=== PATIENT | female | born 1995 | race Caucasian/White ===

== ENCOUNTER 2018-05-04 17:06 | Emergency (ER) | payer MEDICAID, OTHER ==
[2018-05-04 17:19] VITALS: O2SAT 100
[2018-05-04] MEDS ORDERED: Sodium Chloride 0.9% 1,000 ML IV STA (17:51)
--- NOTE | 2018-05-04 18:44 | ED PDOC ---
HPI: General Adult Time Seen by Provider: 05/04/18 17:38 Chief Complaint (Nursing): Back Pain Chief Complaint (Provider): Flank Pain History Per: Patient History/Exam Limitations: no limitations Onset/Duration Of Symptoms: Days (over two weeks) Current Symptoms Are (Timing): Still Present Additional Complaint(s): 22 year old female with no significant past medical history presents to the ED with left flank pain ongoing for more than 2 weeks. Patient reports she went to [facility] ER twice, where she was told she has a kidney infection and was given unknown antibiotics. She took them for a week but pain persisted. She took oral pyridium, however symptoms are persisting. She does not know if cultures were performed and denies that CT imaging was done. Patient has only had one UTI in the past. She denies fever, abdominal pain, body aches or chills. Patient notes intermittent palpitations. She admits to actively smoking. PMD: Adilson Arrington Past Medical History Reviewed: Historical Data, Nursing Documentation, Vital Signs Vital Signs: Last Vital Signs Temp 98.3 F 05/04/18 17:15 Pulse 109 H 05/04/18 17:15 Resp 16 05/04/18 17:15 BP 129/92 H 05/04/18 17:15 Pulse Ox 100 05/04/18 17:15 - Medical History PMH: No Chronic Diseases - Surgical History Surgical History: No Surg Hx - Family History Family History: States: Unknown Family Hx - Social History Current smoker - smoking cessation education provided: Yes - Allergies Allergies/Adverse Reactions: Allergies Allergy/AdvReac Type Severity Reaction Status Date / Time No Known Allergies Allergy Verified 05/04/18 17:20 Review of Systems ROS Statement: Except As Marked, All Systems Reviewed And Found Negative Genitourinary Female: Positive for: Dysuria, Other (flank pain) Physical Exam - Reviewed Nursing Documentation Reviewed: Yes Vital Signs Reviewed: Yes - Physical Exam Appears: Positive for: No Acute Distress (body habitus: very thin) Head Exam: Positive for: ATRAUMATIC, NORMOCEPHALIC Skin: Positive for: Normal Color, Warm, Dry Eye Exam: Positive for: EOMI, Normal appearance, PERRL Neck: Positive for: Normal Cardiovascular/Chest: Positive for: Regular Rate, Rhythm Respiratory: Positive for: Normal Breath Sounds. Negative for: Respiratory Distress Gastrointestinal/Abdominal: Positive for: Normal Exam, Soft. Negative for: Tenderness Back: Positive for: L CVA Tenderness (mild) Extremity: Positive for: Normal ROM (upper and lower). Negative for: Pedal Edema, Deformity Neurologic/Psych: Positive for: Alert, Oriented (x3) - Laboratory Results Result Diagrams: 05/04/18 19:00 05/04/18 19:00 - ECG O2 Sat by Pulse Oximetry: 100 (RA) Pulse Ox Interpretation: Normal Medical Decision Making Medical Decision Making: Time: 1834 --Workup for recurrent flank pain, will obtain imaging to rule out nephrolithiasis, blood work and reevaluation. Due to history of palpitation, an EKG was done. She has normal sinus rhythm at 77 with normal intervals. Scribe Attestation: Documented by Liset Beckham, acting as a scribe for Alber Damon DO. Provider Scribe Attestation: All medical record entries made by the Scribe were at my direction and personally dictated by me. I have reviewed the chart and agree that the record accurately reflects my personal performance of the history, physical exam, medical decision making, and the department course for this patient. I have also personally directed, reviewed, and agree with the discharge instructions and disposition. Disposition - Clinical Impression Clinical Impression: Flank pain - Patient ED Disposition Is Patient to be Admitted: Transfer of Care Counseled Patient/Family Regarding: Studies Performed - Disposition Disposition: Transfer of Care Disposition Time: 19:02 Condition: IMPROVED Additional Instructions: Take Tylenol or Motrin for pain. Follow up with primary medical doctor withing one week. Return to the emergency department if symptoms worsen or if new symptoms develop. Instructions: Acute Abdomen (Belly Pain), Adult (DC), Flank Pain (DC) Forms: [employer] (Gabonese), [facility] ED School/Work Excuse Print Language: KOREAN Patient Signed Over To: Shamika Flores Handoff Comments: pending imaging labs and dispo
[2018-05-04 19:11] LABS: BASO % 0.5 % (0.0-2.0); EOS % 0.4 % (0.0-4.0); HEMOGLOBIN 14.3 g/dL (12.0-16.0); LYMPH # 1.6 K/uL (1.0-4.3); LYMPH % 27.3 % (20.0-40.0); MEAN CELL VOLUME 88.8 fl (81.0-99.0); MEAN CORPUSCULAR HEMOGLOBIN 29.7 pg (27.0-31.0); MEAN CORPUSCULAR HGB CONC 33.4 g/dL (33.0-37.0); MONO # 0.3 K/uL (0.0-0.8); MONO % 4.8 % (0.0-10.0); NRBC % 0.1 % (0.0-0.0); RBC 4.81 Mil/uL (3.80-5.20); RED CELL DISTRIBUTION WIDTH 13.3 % (11.5-14.5); WHITE BLOOD COUNT 5.9 K/uL (4.8-10.8)
[2018-05-04 19:47] LABS: ALB/GLOB RATIO 1.7 (1.0-2.1); ALBUMIN 5.3 g/dL (3.5-5.0); ALT/SGPT 22 U/L (9-52); AST/SGOT 28 U/L (14-36); BLOOD UREA NITROGEN 9 mg/dl (7-17); CALCIUM 10.4 mg/dL (8.4-10.2); GFR NON-AFRICAN AMERICAN > 60
--- NOTE | 2018-05-04 20:29 | ED PDOC ---
- Laboratory Results Result Diagrams: 05/04/18 19:00 05/04/18 19:00 Lab Results: Total Bilirubin 0.5 mg/dl (0.2-1.3) 05/04/18 19:00 AST 28 U/L (14-36) 05/04/18 19:00 ALT 22 U/L (9-52) 05/04/18 19:00 Alkaline Phosphatase 54 U/L (38-126) 05/04/18 19:00 Total Protein 8.4 G/DL (6.3-8.2) H 05/04/18 19:00 Albumin 5.3 g/dL (3.5-5.0) H 05/04/18 19:00 Globulin 3.2 gm/dL (2.2-3.9) 05/04/18 19:00 Albumin/Globulin Ratio 1.7 (1.0-2.1) 05/04/18 19:00 - ECG O2 Sat by Pulse Oximetry: 100 Medical Decision Making Medical Decision Making: Time: 0 --Patient signed out to this provider by Dr. Damon, pending CT to rule out renal stones. Scribe Attestation: Documented by Liset Beckham, acting as a scribe for Shamika Flores MD. Provider Scribe Attestation: All medical record entries made by the Scribe were at my direction and personally dictated by me. I have reviewed the chart and agree that the record accurately reflects my personal performance of the history, physical exam, medical decision making, and the department course for this patient. I have also personally directed, reviewed, and agree with the discharge instructions and disposition. Time: 21 -- CT shown with possible cholecystitis. US showing no abnormalities. Patient w ith improved symptoms. Vitals within normal limits. Patient to be discharged home. Patient encouraged follow up with PMD within one week. Return parameters discussed. Scribe Attestation: Documented by Betty Bae, acting as a scribe for Shamika Flores MD. Provider Scribe Attestation: All medical record entries made by the Scribe were at my direction and person ally dictated by me. I have reviewed the chart and agree that the record accurately reflects my personal performance of the history, physical exam, medical decision making, and the department course for this patient. I have also personally directed, reviewed, and agree with the discharge instructions and disposition. Disposition Counseled Patient/Family Regarding: Studies Performed, Diagnosis, Need For Followup - Clinical Impression Clinical Impression: Flank pain - POA Present On Arrival: None - Disposition Disposition: Routine/Home Disposition Time: 00:22 Condition: IMPROVED Additional Instructions: Take Tylenol or Motrin for pain. Follow up with primary medical doctor withing one week. Return to the emergency department if symptoms worsen or if new symptoms develop. Instructions: Acute Abdomen (Belly Pain), Adult (DC), Flank Pain (DC) Forms: [employer] (Chinese), [facility] ED School/Work Excuse Print Language: INDONESIAN
[2018-05-05 00:31] VITALS: BP 107/69; PULSE 76; RESP 19; TEMP 99.9
--- NOTE | 2018-05-05 08:38 | CARD ---
APPROVED REPORT Date of service: 05/04/2018 EKG Measurement Heart [id number] <Conclusion> Normal sinus rhythm Normal Electrocardiogram
--- NOTE | 2018-05-05 11:40 | US ---
Date of service: 05/04/2018 HISTORY: work up for cholecystitis COMPARISON: None. TECHNIQUE: Sonographic evaluation of the right upper quadrant of the abdomen. FINDINGS: LIVER: Measures 12.4 cm in length. Patent portal vein. Portal venous flow: Hepatopetal. Unremarkable echogenicity of the liver parenchyma. No mass. No intrahepatic bile duct dilatation. GALLBLADDER: Unremarkable. No gallstones. COMMON BILE DUCT: Measures 2.6 mm. No stones. No dilatation. PANCREAS: Unremarkable as visualized. No mass. No ductal dilatation. RIGHT KIDNEY: Measures 4.3 x 10.1 cm in length. Normal echogenicity. No calculus, mass, or hydronephrosis. AORTA: No aneurysmal dilatation. IVC: Unremarkable. OTHER FINDINGS: None . IMPRESSION: No significant or acute findings to account for/ related to the clinical presentation. Concordant findings (preliminary report) provided by [facility].
--- NOTE | 2018-05-05 14:11 | CT ---
Date of service: 05/04/2018 PROCEDURE: CT Abdomen and Pelvis without intravenous contrast HISTORY: L flank pain x2 weeks Negative test (concurrent with this examination). COMPARISON: May 04, 2018. Abdominal ultrasound. TECHNIQUE: Unenhanced. Neither IV nor oral contrast administered Radiation dose: Total exam DLP = 184.47 mGy-cm. This CT exam was performed using one or more of the following dose reduction techniques: Automated exposure control, adjustment of the mA and/or kV according to patient size, and/or use of iterative reconstruction technique. FINDINGS: LOWER THORAX: Unremarkable. LIVER: Unremarkable. No gross lesion or ductal dilatation. GALLBLADDER AND BILE DUCTS: Unremarkable. PANCREAS: Unremarkable. No gross lesion or ductal dilatation. SPLEEN: Unremarkable. ADRENALS: Unremarkable. No mass. KIDNEYS AND URETERS: Unremarkable. No hydronephrosis. No solid mass. VASCULATURE: Unremarkable. No aortic aneurysm. No atherosclerotic calcification or mural plaque present. BOWEL: Unremarkable. No obstruction. No gross mural thickening. APPENDIX: Unremarkable. Normal appendix. PERITONEUM: Unremarkable. No free fluid. No free air. LYMPH NODES: Unremarkable. No enlarged lymph nodes. BLADDER: Unremarkable. REPRODUCTIVE: Unremarkable. BONES: No acute fracture. OTHER FINDINGS: None. IMPRESSION: No acute or significant findings related to/ accounting for the clinical presentation. Additional benign and/or incidental findings described above. No significant interval change compared to the prior examination(s).
== END 2018-05-05 00:45 | disposition home or self-care (01) ==
LOC: H.ER 17:06
DX: R10.9 Unspecified abdominal pain (principal); R00.2 Palpitations
CPT/HCPCS: 74176; 76705; 80053; 81025; 84443; 85025; 87086; 93005; 96374; 99283; J1885; J7030